=== PATIENT | female | born 1995 | race African-American/Black ===

== ENCOUNTER 2017-10-08 15:36 | Emergency (ER) | payer SELFPAY ==
[~2017-10-08] VITALS: Ht 162.6 cm; Wt 53.2 kg
[~2017-10-08 15:36] MED LIST: AMOX500T PO; IBUP800T23 PO
[2017-10-08] MEDS ORDERED: IOHEXOL 350 MG/ML 10 ML VIAL (for RAD DIAG) IVCONTRAST ONE (15:37)
[2017-10-08 15:38] VITALS: BP 160/98; PULSE 132; RESP 18; TEMP 99.2; O2SAT 99
[2017-10-08 16:45] LABS: AUTOMATED NEUTROPHIL # 15.1 TH/MM3 (1.8-7.7); BASOPHIL % 0.2 % (0.0-2.0); EOSINOPHIL # 0.1 TH/MM3 (0-0.4); EOSINOPHIL % 0.5 % (0.0-4.0); HEMATOCRIT 34.8 % (35.0-46.0); HEMOGLOBIN 11.6 GM/DL (11.6-15.3); LYMPH % 6.6 % (9.0-44.0); LYMPHOCYTE # 1.2 TH/MM3 (1.0-4.8); MEAN CELL VOLUME 96.9 FL (80.0-100.0); MEAN CORPUSCULAR HEMOGLOBIN 32.4 PG (27.0-34.0); MEAN CORPUSCULAR HGB CONC 33.4 % (32.0-36.0); MEAN PLATELET VOLUME 8.4 FL (7.0-11.0); MONOCYTE # 1.4 TH/MM3 (0-0.9); NEUT % 84.7 % (16.0-70.0); PLATELET COUNT 317 TH/MM3 (150-450); RED BLOOD COUNT 3.59 MIL/MM3 (4.00-5.30); RED CELL DISTRIBUTION WIDTH 12.9 % (11.6-17.2); WHITE BLOOD COUNT 17.8 TH/MM3 (4.0-11.0)
[2017-10-08 16:50] LABS: BILIRUBIN, URINE NEG (NEG); BLOOD, URINE NEG (NEG); GLUCOSE,URINE NEG (NEG); KETONE, URINE NEG (NEG); NITRITE,URINE NEG (NEG); PH, URINE 6.5 (5.0-8.5); SQUAMOUS EPITHELIAL CELL URINE 1 /hpf (0-5); URINE COLOR LIGHT-YELLOW (YELLW/STRAW); URINE LEUKOCYTE ESTERASE MOD (NEG)
[2017-10-08] MEDS ORDERED: SODIUM CHLOR 0.9% 1000 ML INJ 1,000 ML IV SCH (17:06)
[2017-10-08 17:07] LABS: ALBUMIN 4.5 GM/DL (3.4-5.0); AST (GOT) 15 U/L (15-37); BICARBONATE 26.8 MEQ/L (21.0-32.0); BLOOD UREA NITROGEN 10 MG/DL (7-18); CALCIUM 9.4 MG/DL (8.5-10.1); CHLORIDE 102 MEQ/L (98-107); CREATININE 0.86 MG/DL (0.50-1.00); GLOMERULAR FILTRATION RATE 99 ML/MIN (>89); GLUCOSE,RANDOM 94 MG/DL (74-106); SODIUM (NA) 139 MEQ/L (136-145)
[2017-10-08 17:11] LABS: ALKALINE PHOSPHATASE 73 U/L (45-117); ALT (GPT) 14 U/L (10-53); TOTAL BILIRUBIN ADULT 0.9 MG/DL (0.2-1.0); TOTAL PROTEIN 8.2 GM/DL (6.4-8.2)
[2017-10-08] MEDS ORDERED: KETOROLAC TROMETHAMINE 30 MG/ML (IVP) VIAL IVP ONE (17:15)
[2017-10-08] MEDS ORDERED: ONDANSETRON HCL 4 MG/2 ML VIAL IVP ONE (17:15)
[2017-10-08] MEDS ORDERED: SODIUM CHLORIDE 0.9% FLUSH 10 ML FLUSH IV FLUSH PRN (17:15)
[2017-10-08] MEDS ORDERED: DIATRIZOATE MEGLUM/DIATRIZOATE SOD 9 ML CUP ONE (17:55)
--- NOTE | 2017-10-08 18:48 | PD ---
HPI Chief Complaint: Abdominal Pain Time Seen by Provider: 16:54 Travel History International Travel<30 days: No Contact w/Intl Traveler<30days: No Traveled to known affect area: No History of Present Illness HPI 21-year-old female presents to the emergency Department with complaint of abdominal pain, cramping 10 days. Abdominal pain is lower abdomen and radiates to her back bilaterally. Denies fever, vomiting. Reports diarrhea and had a bowel movement today. Reports dysuria. Denies hematuria, hematochezia. Denies vaginal discharge or odor. Reports being sexually active. No contraception use. Last menstrual period September 25October 05. Rates pain /. Has been taking Aleve with relief of pain. Pain is worse when she "contracts muscle to have a bowel movement." Says her pain comes on so severely that it puts her into position. No known aggravating factors. Denies history of abdominal surgeries. No primary care provider. No known allergies. Denies significant past medical history. Has no medical complaints. No other modifying factors or associated signs and symptoms. PFSH Past Medical History ?: Not LMP: 09/25/2017 Social History Alcohol Use: Yes (RARE) Tobacco Use: No Substance Use: No Allergies-Medications (Allergen,Severity, Reaction): Coded Allergies: No Known Allergies (Unverified Allergy, Unknown, 10/08/17) Reported Meds & Prescriptions Reported Meds & Active Scripts Active Ultram (Tramadol HCl) 50 Mg Tab 50 Mg PO Q6H PRN Diclofenac Sodium DR (Diclofenac Sodium) 50 Mg Tabdr 50 Mg PO TID Doxycycline Hyclate 100 Mg Cap 100 Mg PO BID Review of Systems Except as stated in HPI: all other systems reviewed are Neg Physical Exam Narrative GENERAL: Well-nourished, well-developed black female patient, in no acute distress; afebrile; nontoxic appearing SKIN: Warm and dry. HEAD: Atraumatic. Normocephalic. EYES: Pupils equal and round. No scleral icterus. No injection or drainage. ENT: Mucosa pink and moist. Airway patent. NECK: Trachea midline. CARDIOVASCULAR: Tachycardic rate and rhythm. No murmur appreciated. RESPIRATORY: No accessory muscle use. Clear to auscultation. Breath sounds equal bilaterally. GASTROINTESTINAL: Abdomen soft, tenderness on palpation to RLQ and pelvic region , nondistended. Hepatic and splenic margins not palpable. Bowel sounds are hyperactive 4 quadrants. Nonrigid. No rebound tenderness. No guarding. PELVIC: Exam done in the presence of a nurse. Speculum exam reveals edematous and erythematous cervix with light green , mucopurulent, foul-smelling discharge. Bimanual exam reveals no palpable masses or adnexa tenderness, no uterine tenderness. Positive cervical motion tenderness. BACK: No CVA tenderness. MUSCULOSKELETAL: No obvious deformities. No clubbing. No cyanosis. No edema. NEUROLOGICAL: Awake and alert. Oriented 3. No obvious cranial nerve deficits. Motor grossly within normal limits. Normal speech. PSYCHIATRIC: Appropriate mood and affect; insight and judgment normal. Data Data Last Documented VS Vital Signs Date Time Temp Pulse Resp B/P (MAP) Pulse Ox O2 Delivery O2 Flow Rate FiO2 10/08/17 21:39 10/08/17 19:58 107 20 100 Room Air 10/08/17 15:38 99.2 Orders Orders Complete Blood Count With Diff (10/08/17 15:44) Comprehensive Metabolic Panel (10/08/17 15:44) Lipase (10/08/17 15:44) Urinalysis - C+S If Indicated (10/08/17 15:44) Ed Urine Pregnancytest Poc (10/08/17 15:44) Ct Abd/Pel W Iv Contrast(Rout) (10/08/17 17:06) Iv Access Insert/Monitor (10/08/17 17:06) Ondansetron Inj (Zofran Inj) (10/08/17 17:15) Sodium Chlor 0.9% 1000 Ml Inj (Ns 1000 M (10/08/17 17:06) Sodium Chloride 0.9% Flush (Ns Flush) (10/08/17 17:15) Ketorolac Inj (Toradol Inj) (10/08/17 17:15) Gc And Chlamydia Pcr (10/08/17 17:06) Wet Prep Profile (10/08/17 17:06) Oral Contrast - Adult (10/08/17 17:13) Us Pelvis Comp Well Tender/Non-Preg (10/08/17 ) Diatrizoate Liq ( Gastroview Liq) (10/08/17 17:55) Potassium Chloride (Kcl) (10/08/17 19:00) Ceftriaxone Inj (Rocephin Inj) (10/08/17 19:00) Lidocaine 1% Inj (50 Ml) (Xylocaine 1% I (10/08/17 19:00) Azithromycin (Zithromax) (10/08/17 19:00) Morphine Inj (Morphine Inj) (10/08/17 19:15) Iohexol 350 Inj (Omnipaque 350 Inj) (10/08/17 15:37) Sodium Chlor 0.9% 1000 Ml Inj (Ns 1000 M (10/08/17 20:00) Ed Discharge Order (10/08/17 20:25) Morphine Inj (Morphine Inj) (10/08/17 20:45) Labs Laboratory Tests Test 10/08/17 15:50 10/08/17 16:00 10/08/17 18:10 White Blood Count 17.8 TH/MM3 Red Blood Count 3.59 MIL/MM3 Hemoglobin 11.6 GM/DL Hematocrit 34.8 % Mean Corpuscular Volume 96.9 FL Mean Corpuscular Hemoglobin 32.4 PG Mean Corpuscular Hemoglobin Concent 33.4 % Red Cell Distribution Width 12.9 % Platelet Count 317 TH/MM3 Mean Platelet Volume 8.4 FL Neutrophils (%) (Auto) 84.7 % Lymphocytes (%) (Auto) 6.6 % Monocytes (%) (Auto) 8.0 % Eosinophils (%) (Auto) 0.5 % Basophils (%) (Auto) 0.2 % Neutrophils # (Auto) 15.1 TH/MM3 Lymphocytes # (Auto) 1.2 TH/MM3 Monocytes # (Auto) 1.4 TH/MM3 Eosinophils # (Auto) 0.1 TH/MM3 Basophils # (Auto) 0.0 TH/MM3 CBC Comment DIFF FINAL Differential Comment Blood Urea Nitrogen 10 MG/DL Creatinine 0.86 MG/DL Random Glucose 94 MG/DL Total Protein 8.2 GM/DL Albumin 4.5 GM/DL Calcium Level 9.4 MG/DL Alkaline Phosphatase 73 U/L Aspartate Amino Transf (AST/SGOT) 15 U/L Alanine Aminotransferase (ALT/SGPT) 14 U/L Total Bilirubin 0.9 MG/DL Sodium Level 139 MEQ/L Potassium Level 3.0 MEQ/L Chloride Level 102 MEQ/L Carbon Dioxide Level 26.8 MEQ/L Anion Gap 10 MEQ/L Estimat Glomerular Filtration Rate 99 ML/MIN Lipase 72 U/L Urine Color LIGHT-YELLOW Urine Turbidity CLEAR Urine pH 6.5 Urine Specific [place] 1.004 Urine Protein NEG mg/dL Urine Glucose (UA) NEG mg/dL Urine Ketones NEG mg/dL Urine Occult Blood NEG Urine Nitrite NEG Urine Bilirubin NEG Urine Urobilinogen LESS THAN 2.0 MG/DL Urine Leukocyte Esterase MOD Urine RBC 1 /hpf Urine WBC 3 /hpf Urine Squamous Epithelial Cells 1 /hpf Microscopic Urinalysis Comment CULT NOT INDICATED Clue Cells (Wet Prep) NONE SEEN Vaginal Trichomonas (Wet Prep) NONE SEEN Vaginal Yeast (Wet Prep) NONE SEEN Chlamydia trachomatis DNA (PCR) NOT DETECTED Neisseria gonorrhoeae DNA (PCR) DETECTED MDM Medical Decision Making Medical Screen Exam Complete: Yes Emergency Medical Condition: Yes Medical Record Reviewed: Yes Differential Diagnosis Pelvic inflammatory disease, appendicitis, cervicitis, chlamydia, gonorrhea, UTI , pyelonephritis Narrative Course 21-year-old female with lower abdominal pain and cramping 10 days. Patient has right lower quadrant abdominal pain on exam. UPT negative. CBC, CMP, lipase, urinalysis, UPT ordered in triage. WBC 17.8. Patient with low-grade fever of 99.2 heart rate 132. Patient is nontoxic-appearing. She is tearful and painful. I discussed the patient with Dr. Boswell, attending physician, and he agrees with plan of care. Wet prep, chlamydia, gonorrhea, CT abdomen/ pelvis, pelvic ultrasound ordered. 1754: I discussed the patient with Dr. Spivey, my attending physician. He recommended pelvic ultrasound. Ultrasound ordered. 1814: Pelvic exam concluded cervicitis with cervical motion tenderness and suspecting PID. Patient treated empirically with azithromycin and Rocephin. Potassium 3.0. 40meq potassium chloride ordered. Otherwise, CMP unremarkable. Lipase 72. Vaginal yeast, vaginal Trichomonas, bacterial vaginosis negative. Chlamydia and gonorrhea pending. 1899: Report given to Ignacio Frye PA-C at change of shift. See his his note for final patient disposition. Diagnosis Primary Impression: PID (pelvic inflammatory disease) Additional Impression: Hypokalemia Scripts Tramadol (Ultram) 50 Mg Tab 50 MG PO Q6H Y for PAIN, #10 TAB 0 Refills Prov: Rizwan Spivey MD 10/08/[address] (Diclofenac Sodium DR) 50 Mg Tabdr 50 MG PO TID, #12 TAB 0 Refills Prov: Rizwan Spivey MD 10/08/17 Doxycycline Hyclate (Doxycycline Hyclate) 100 Mg Cap 100 MG PO BID for Infection, #20 CAP 0 Refills Prov: Rizwan Spivey MD 10/08/17 Denise Gutierrez Oct 08, 2017 18:48
[2017-10-08] MEDS ORDERED: LIDOCAINE HCL 1% 50 ML VIAL IM ONE (19:00)
[2017-10-08] MEDS ORDERED: AZITHROMYCIN 250 MG TAB PO ONE (19:00)
[2017-10-08] MEDS ORDERED: POTASSIUM CHLORIDE 20 MEQ CONTROLLED RELEASE TAB PO ONE (19:00)
[2017-10-08] MEDS ORDERED: cefTRIAXone 250 MG VIAL IM ONE (19:00)
[2017-10-08] MEDS ORDERED: MORPHINE SULFATE 4 MG/ML INJ IV PUSH ONE (19:15)
--- NOTE | 2017-10-08 19:32 | RADRPT ---
EXAM DATE/TIME: 10/08/2017 18:48 [facility] COMPARISON: No previous studies available for comparison. INDICATIONS : Pelvic pain. MEDICAL HISTORY : Pelvic pain, cramping. SURGICAL HISTORY : None. ENCOUNTER: Initial ACUITY: 1 day PAIN SCORE: 9/10 LOCATION: Bilateral pelvis MEASUREMENTS: UTERUS: 7.6 x 4.0 x 3.0 cm ENDOMETRIAL STRIPE: 1 mm RIGHT OVARY: 3.9 x 2.4 x 2.4 cm LEFT OVARY: 3.7 x 2.9 x 2.6 cm FINDINGS: UTERUS: The myometrium has homogeneous echotexture without mass. RIGHT OVARY: Ovary contains no mass or significant cystic lesion. LEFT OVARY: Ovary contains no mass or significant cystic lesion. MISCELLANEOUS: No free fluid. CONCLUSION: Normal examination. Kristin Vanegas MD on October 08, 2017 at 19:30 Board Certified Radiologist. This report was verified electronically.
[2017-10-08 19:53] VITALS: PULSE 100
[2017-10-08 19:58] VITALS: BP 128/66; PULSE 107; RESP 20; O2SAT 100
--- NOTE | 2017-10-08 19:59 | RADRPT ---
EXAM DATE/TIME: 10/08/2017 19:36 [facility] COMPARISON: No previous studies available for comparison. INDICATIONS : Diffuse abdomen pain for five days. IV CONTRAST: 91 cc Omnipaque 350 (iohexol) IV ORAL CONTRAST: Prescribed oral contrast ingested. RADIATION DOSE: 5.40 CTDIvol (mGy) MEDICAL HISTORY : None SURGICAL HISTORY : None. ENCOUNTER: Initial ACUITY: 4 - 6 days PAIN SCALE: 9/10 LOCATION: Bilateral lower quadrant TECHNIQUE: Volumetric scanning of the abdomen and pelvis was performed. Using automated exposure control and ad justment of the mA and/or kV according to patient size, radiation dose was kept as low as reasonably achievable to obtain optimal diagnostic quality images. DICOM format image data is available electro nically for review and comparison. FINDINGS: CT Abdomen: The liver, spleen, pancreas, kidneys, adrenals are unremarkable. There is no evidence for any appreciable pathological adenopathy, free fluid, or bowel obstruction. The stomach appears diste nded and measures 16.3 cm in craniocaudal dimension and there is questionable mass measures 1.9 cm in the antrum of the stomach versus submucosal thickening of the antrum of the stomach diffusely. There is a small subcentimeter area of sclerosis involving the left iliac bone posteriorly near the SI yvette nt most likely benign. CT pelvis: There is no evidence for mass, abscess formation, or any significant adenopathy within the pelvis. The uterus is inhomogeneous and may be due to contrast phase of enhancement without a clear mass. Within the pelvis the small bowel loops demonstrate questionable wall thickening, however this could be due to lack of proper distention not particularly dilated. CONCLUSION: Significantly distended stomach and possibility of submucosal edema involving the ant rum and/or possibly underlying mass should be entertained. Kristin Vanegas MD on October 08, 2017 at 19:52 Board Certified Radiologist. This report was verified electronically.
[2017-10-08] MEDS ORDERED: SODIUM CHLOR 0.9% 1000 ML INJ 1,000 ML IV ONE (20:00)
[2017-10-08] MEDS ORDERED: DOXY100C PO (20:15)
[2017-10-08] MEDS ORDERED: DICL50TA3 PO (20:15)
--- NOTE | 2017-10-08 20:17 | PD ---
Physical Exam Date Seen by Provider: Oct 08, 2017 Time Seen by Provider: 20:15 Narrative GENERAL: This is a well-nourished, well-developed patient, in no apparent distress. SKIN: No rashes, ecchymoses or lesions. Warm and dry. HEAD: Atraumatic. Normocephalic. EYES: PERRL, EOMI, no discharge or injection. No scleral icterus. EARS: Clear NOSE: Nasal turbinates appear normal. THROAT: Mucosa pink and moist. Airway patent. NECK: Trachea midline. supple, moves head freely. LUNGS: Clear to auscultation. CV: Regular in rhythm. ABDOMEN: Soft, mild diffuse tenderness to deep palpation. No guarding or rebound. EXT: No clubbing cyanosis or edema. Data Data Last Documented VS Vital Signs Date Time Temp Pulse Resp B/P (MAP) Pulse Ox O2 Delivery O2 Flow Rate FiO2 10/08/17 19:58 107 20 128/66 (86) 100 Room Air 10/08/17 15:38 99.2 Orders Orders Complete Blood Count With Diff (10/08/17 15:44) Comprehensive Metabolic Panel (10/08/17 15:44) Lipase (10/08/17 15:44) Urinalysis - C+S If Indicated (10/08/17 15:44) Ed Urine Pregnancytest Poc (10/08/17 15:44) Ct Abd/Pel W Iv Contrast(Rout) (10/08/17 17:06) Iv Access Insert/Monitor (10/08/17 17:06) Ondansetron Inj (Zofran Inj) (10/08/17 17:15) Sodium Chlor 0.9% 1000 Ml Inj (Ns 1000 M (10/08/17 17:06) Sodium Chloride 0.9% Flush (Ns Flush) (10/08/17 17:15) Ketorolac Inj (Toradol Inj) (10/08/17 17:15) Gc And Chlamydia Pcr (10/08/17 17:06) Wet Prep Profile (10/08/17 17:06) Oral Contrast - Adult (10/08/17 17:13) Us Pelvis Comp Electrical Prospecting Engineer/Non-Preg (10/08/17 ) Diatrizoate Liq ( Gastroview Liq) (10/08/17 17:55) Potassium Chloride (Kcl) (10/08/17 19:00) Ceftriaxone Inj (Rocephin Inj) (10/08/17 19:00) Lidocaine 1% Inj (50 Ml) (Xylocaine 1% I (10/08/17 19:00) Azithromycin (Zithromax) (10/08/17 19:00) Morphine Inj (Morphine Inj) (10/08/17 19:15) Iohexol 350 Inj (Omnipaque 350 Inj) (10/08/17 15:37) Sodium Chlor 0.9% 1000 Ml Inj (Ns 1000 M (10/08/17 20:00) Labs Laboratory Tests Test 10/08/17 15:50 10/08/17 16:00 10/08/17 18:10 White Blood Count 17.8 TH/MM3 Red Blood Count 3.59 MIL/MM3 Hemoglobin 11.6 GM/DL Hematocrit 34.8 % Mean Corpuscular Volume 96.9 FL Mean Corpuscular Hemoglobin 32.4 PG Mean Corpuscular Hemoglobin Concent 33.4 % Red Cell Distribution Width 12.9 % Platelet Count 317 TH/MM3 Mean Platelet Volume 8.4 FL Neutrophils (%) (Auto) 84.7 % Lymphocytes (%) (Auto) 6.6 % Monocytes (%) (Auto) 8.0 % Eosinophils (%) (Auto) 0.5 % Basophils (%) (Auto) 0.2 % Neutrophils # (Auto) 15.1 TH/MM3 Lymphocytes # (Auto) 1.2 TH/MM3 Monocytes # (Auto) 1.4 TH/MM3 Eosinophils # (Auto) 0.1 TH/MM3 Basophils # (Auto) 0.0 TH/MM3 CBC Comment DIFF FINAL Differential Comment Blood Urea Nitrogen 10 MG/DL Creatinine 0.86 MG/DL Random Glucose 94 MG/DL Total Protein 8.2 GM/DL Albumin 4.5 GM/DL Calcium Level 9.4 MG/DL Alkaline Phosphatase 73 U/L Aspartate Amino Transf (AST/SGOT) 15 U/L Alanine Aminotransferase (ALT/SGPT) 14 U/L Total Bilirubin 0.9 MG/DL Sodium Level 139 MEQ/L Potassium Level 3.0 MEQ/L Chloride Level 102 MEQ/L Carbon Dioxide Level 26.8 MEQ/L Anion Gap 10 MEQ/L Estimat Glomerular Filtration Rate 99 ML/MIN Lipase 72 U/L Urine Color LIGHT-YELLOW Urine Turbidity CLEAR Urine pH 6.5 Urine Specific [place] 1.004 Urine Protein NEG mg/dL Urine Glucose (UA) NEG mg/dL Urine Ketones NEG mg/dL Urine Occult Blood NEG Urine Nitrite NEG Urine Bilirubin NEG Urine Urobilinogen LESS THAN 2.0 MG/DL Urine Leukocyte Esterase MOD Urine RBC 1 /hpf Urine WBC 3 /hpf Urine Squamous Epithelial Cells 1 /hpf Microscopic Urinalysis Comment CULT NOT INDICATED Clue Cells (Wet Prep) NONE SEEN Vaginal Trichomonas (Wet Prep) NONE SEEN Vaginal Yeast (Wet Prep) NONE SEEN Chlamydia trachomatis DNA (PCR) NOT DETECTED Neisseria gonorrhoeae DNA (PCR) DETECTED MDM Medical Record Reviewed: Yes Supervised Visit with DON: Yes Differential Diagnosis . Narrative Course The patient's laboratory tests have been reviewed. She does have gonorrhea with a negative CT of the abdomen for acute intra-abdominal process. The ultrasound does not show any acute tubo-ovarian abscess. Patient is made aware of the clinical findings, laboratory testing and radiographs. This is PID, gonorrhea, hypokalemia Diagnosis Primary Impression: PID (pelvic inflammatory disease) Additional Impressions: Hypokalemia gonorrhea Patient Instructions: General Instructions Additional Instruction: Rest. Partner notification. Doxycycline and diclofenac. Follow-up with the [facility] Department for further STD testing such as HIV, syphilis and hepatitis. No intercourse until all partners treated. Always use a condom. Return to the ER if any problems. Med/Other Pt SpecificInfo: Prescription(s) given Scripts Diclofenac Sodium DR (Diclofenac Sodium DR) 50 Mg Tabdr 50 MG PO TID, #12 TAB 0 Refills Prov: Rizwan Spivey MD 10/08/17 Doxycycline Hyclate (Doxycycline Hyclate) 100 Mg Cap 100 MG PO BID for Infection, #20 CAP 0 Refills Prov: Rizwan Spivey MD 10/08/17 Disposition: 01 DISCHARGE HOME Condition: Stable Ignacio Frye Oct 08, 2017 20:17
--- NOTE | 2017-10-08 20:37 | PD ---
Data Data Last Documented VS Vital Signs Date Time Temp Pulse Resp B/P (MAP) Pulse Ox O2 Delivery O2 Flow Rate FiO2 10/08/17 21:39 10/08/17 19:58 107 20 100 Room Air 10/08/17 15:38 99.2 Orders Orders Complete Blood Count With Diff (10/08/17 15:44) Comprehensive Metabolic Panel (10/08/17 15:44) Lipase (10/08/17 15:44) Urinalysis - C+S If Indicated (10/08/17 15:44) Ed Urine Pregnancytest Poc (10/08/17 15:44) Ct Abd/Pel W Iv Contrast(Rout) (10/08/17 17:06) Iv Access Insert/Monitor (10/08/17 17:06) Ondansetron Inj (Zofran Inj) (10/08/17 17:15) Sodium Chlor 0.9% 1000 Ml Inj (Ns 1000 M (10/08/17 17:06) Sodium Chloride 0.9% Flush (Ns Flush) (10/08/17 17:15) Ketorolac Inj (Toradol Inj) (10/08/17 17:15) Gc And Chlamydia Pcr (10/08/17 17:06) Wet Prep Profile (10/08/17 17:06) Oral Contrast - Adult (10/08/17 17:13) Us Pelvis Comp Surveillance Systems Engineer/Non-Preg (10/08/17 ) Diatrizoate Liq ( Gastroview Liq) (10/08/17 17:55) Potassium Chloride (Kcl) (10/08/17 19:00) Ceftriaxone Inj (Rocephin Inj) (10/08/17 19:00) Lidocaine 1% Inj (50 Ml) (Xylocaine 1% I (10/08/17 19:00) Azithromycin (Zithromax) (10/08/17 19:00) Morphine Inj (Morphine Inj) (10/08/17 19:15) Iohexol 350 Inj (Omnipaque 350 Inj) (10/08/17 15:37) Sodium Chlor 0.9% 1000 Ml Inj (Ns 1000 M (10/08/17 20:00) Ed Discharge Order (10/08/17 20:25) Morphine Inj (Morphine Inj) (10/08/17 20:45) Labs Laboratory Tests Test 10/08/17 15:50 10/08/17 16:00 10/08/17 18:10 White Blood Count 17.8 TH/MM3 Red Blood Count 3.59 MIL/MM3 Hemoglobin 11.6 GM/DL Hematocrit 34.8 % Mean Corpuscular Volume 96.9 FL Mean Corpuscular Hemoglobin 32.4 PG Mean Corpuscular Hemoglobin Concent 33.4 % Red Cell Distribution Width 12.9 % Platelet Count 317 TH/MM3 Mean Platelet Volume 8.4 FL Neutrophils (%) (Auto) 84.7 % Lymphocytes (%) (Auto) 6.6 % Monocytes (%) (Auto) 8.0 % Eosinophils (%) (Auto) 0.5 % Basophils (%) (Auto) 0.2 % Neutrophils # (Auto) 15.1 TH/MM3 Lymphocytes # (Auto) 1.2 TH/MM3 Monocytes # (Auto) 1.4 TH/MM3 Eosinophils # (Auto) 0.1 TH/MM3 Basophils # (Auto) 0.0 TH/MM3 CBC Comment DIFF FINAL Differential Comment Blood Urea Nitrogen 10 MG/DL Creatinine 0.86 MG/DL Random Glucose 94 MG/DL Total Protein 8.2 GM/DL Albumin 4.5 GM/DL Calcium Level 9.4 MG/DL Alkaline Phosphatase 73 U/L Aspartate Amino Transf (AST/SGOT) 15 U/L Alanine Aminotransferase (ALT/SGPT) 14 U/L Total Bilirubin 0.9 MG/DL Sodium Level 139 MEQ/L Potassium Level 3.0 MEQ/L Chloride Level 102 MEQ/L Carbon Dioxide Level 26.8 MEQ/L Anion Gap 10 MEQ/L Estimat Glomerular Filtration Rate 99 ML/MIN Lipase 72 U/L Urine Color LIGHT-YELLOW Urine Turbidity CLEAR Urine pH 6.5 Urine Specific [place] 1.004 Urine Protein NEG mg/dL Urine Glucose (UA) NEG mg/dL Urine Ketones NEG mg/dL Urine Occult Blood NEG Urine Nitrite NEG Urine Bilirubin NEG Urine Urobilinogen LESS THAN 2.0 MG/DL Urine Leukocyte Esterase MOD Urine RBC 1 /hpf Urine WBC 3 /hpf Urine Squamous Epithelial Cells 1 /hpf Microscopic Urinalysis Comment CULT NOT INDICATED Clue Cells (Wet Prep) NONE SEEN Vaginal Trichomonas (Wet Prep) NONE SEEN Vaginal Yeast (Wet Prep) NONE SEEN Chlamydia trachomatis DNA (PCR) NOT DETECTED Neisseria gonorrhoeae DNA (PCR) DETECTED MDM Supervised Visit with DON: Yes Narrative Course I, Dr. Spivey, have reviewed the advance practice practitioner's documentation and am in agreement, met with the patient face to face, made the diagnosis, and the medical decision making was done by me. *My assessment and Findings: Patient been seen walking around the emergency department with no obvious distress, she had complaints of pain all over, she had ultrasound of her pelvis which was negative, CT of her abdomen showed some abdominal distention and possible mass but certainly could be workup as an outpatient. Mr. Medeiros went to deliver the patient's diagnosis of PID with gonorrhea, shortly after discharge the patient began screaming of pain, when I examine her she is sitting upright and in the bed but her abdomen is fairly soft, she is isolating the pain to her right upper quadrant states it hurts her when she takes a deep breath. Her symptoms could be consistent with [place] syndrome but her LFTs are normal. We will give more pain medicine and see if she feeling better. I reviewed all of the patient's workup and do not see any additional workup for pain that is now on the right upper quadrant. She was given an additional dose of morphine her abdomen is completely benign at this time. I discussed her diagnosis with her and discussed need for follow-up with the health department for further testing as well as testing and treating her partners and always using condoms. She has ambulated out of the emergency department in no distress. Diagnosis Primary Impression: PID (pelvic inflammatory disease) Additional Impressions: Hypokalemia gonorrhea Patient Instructions: General Instructions, Pelvic Inflammatory Disease (ED), Hypokalemia (ED) Departure Forms: Tests/Procedures Additional Instruction: Rest. Partner notification. Doxycycline and diclofenac. Follow-up with the [facility] Department for further STD testing such as HIV, syphilis and hepatitis. No intercourse until all partners treated. Always use a condom. Return to the ER if any problems. Scripts Tramadol (Ultram) 50 Mg Tab 50 MG PO Q6H Y for PAIN, #10 TAB 0 Refills Prov: Rizwan Spivey MD 10/08/[address] (Diclofenac Sodium DR) 50 Mg Tabdr 50 MG PO TID, #12 TAB 0 Refills Prov: Rizwan Spivey MD 10/08/17 Doxycycline Hyclate (Doxycycline Hyclate) 100 Mg Cap 100 MG PO BID for Infection, #20 CAP 0 Refills Prov: Rizwan Spivey MD 10/08/17 Disposition: 01 DISCHARGE HOME Condition: Stable Rizwan Spivey MD Oct 08, 2017 20:37
[2017-10-08] MEDS ORDERED: MORPHINE SULFATE 8 MG/ML INJ IV PUSH ONE (20:45)
[2017-10-08] MEDS ORDERED: TRAM50 PO (21:12)
== END 2017-10-08 21:40 | disposition home or self-care (01) ==
LOC: NEPD 15:36
DX: N73.9 Female pelvic inflammatory disease, unspecified (principal); E87.6 Hypokalemia; A54.9 Gonococcal infection, unspecified
CPT/HCPCS: 74177; 76856; 80053; 81001; 83690; 84703; 85025; 87210; 87491; 87591; 96361; 96372; 96374; 96375; 96376; 99285; J0696; J1885; J2270; J2405; J7030; Q9963; Q9967